=== PATIENT | female | born 1970 | race Two or more races ===

== ENCOUNTER 2024-10-01 10:11 | Outpatient (CLI) | payer OTHER | END 2024-10-01 10:17 | disposition home or self-care (01) | LOC: TOM 10:11 | PROVIDERS: ATTEND Surgery | DX: K57.20 Diverticulitis of large intestine with perforation and abscess without bleeding (principal); Z93.3 Colostomy status ==

== ENCOUNTER 2024-11-25 11:15 | Inpatient (IN) | payer OTHER ==
[~2024-11-25] VITALS: Ht 154.9 cm; Wt 82.6 kg
[2024-11-26] MEDS ORDERED: LOSARTAN POTASS50 MG PO (14:46)
[2024-11-26] MEDS ORDERED: HYDRODIURIL12.5 MG PO (14:46)
[2024-11-26] MEDS ORDERED: ZOLOFT100 MG PO (14:47)
[2024-12-06] MEDS ORDERED: METRONIDAZOLE/SODIUM CHLORIDE 500 MG/100 ML PIGGYBACK IV ONE (10:34)
[2024-12-06] MEDS ORDERED: CEFTRIAXONE SODIUM 2,000 MG VIAL ONE (10:34)
[2024-12-06] MEDS ORDERED: BUPIVACAINE HCL/MPF 0.5% 30ML VIAL ONE (12:52)
[2024-12-06] MEDS ORDERED: POVIDONE-IODINE 118 ML BOTT TOP ONE (14:32)
[2024-12-06] MEDS ORDERED: SUGAMMADEX SODIUM 200 MG/2 ML VIAL IV ONE (15:19)
[2024-12-06] MEDS ORDERED: DEXTROSE 50 % IN WATER 0.5 G/ML VIAL IV PRN (15:45)
[2024-12-06] MEDS ORDERED: 0.9 % SODIUM CHLORIDE 1,000 ML IV SCH (15:45)
[2024-12-06] MEDS ORDERED: OxyCODONE HCL 5 MG TABLET (ROXICODONE) PO PRN (15:45)
[2024-12-06] MEDS ORDERED: ONDANSETRON HCL 2 MG/ML VIAL IV PRN (15:45)
[2024-12-06] MEDS ORDERED: MORPHINE SULFATE 4 MG/ML CARTRIDGE IV PRN (15:45)
[2024-12-06] MEDS ORDERED: HYOSCYAMINE SULFATE 0.125 MG TAB.SUBL SL SCH (17:00)
[2024-12-06] MEDS ORDERED: GABAPENTIN 300 MG CAPSULE PO SCH (17:00)
[2024-12-06] MEDS ORDERED: METRONIDAZOLE/SODIUM CHLORIDE 500 MG/100 ML PIGGYBACK IV SCH (17:00)
[2024-12-06] MEDS ORDERED: ENALAPRILAT DIHYDRATE 1.25 MG/ML VIAL IV PRN (19:15)
[2024-12-06] MEDS ORDERED: ACETAMINOPHEN 500 MG GEL..CAP PO SCH (20:00)
[2024-12-06] MEDS ORDERED: ACETAMINOPHEN 500 MG GEL..CAP PO ONE (20:01)
[2024-12-06] MEDS ORDERED: FAMOTIDINE/PF 20 MG/2 ML VIAL ONE (20:01)
[2024-12-06] MEDS ORDERED: CELECOXIB 200 MG CAPSULE PO ONE (20:01)
[2024-12-06 20:26] LABS: BASO % 0.1 % (0.1-1.2); EOS # 0.01 (0.04-0.54); EOS % 0.1 % (0.7-7.0); LYMPH # 0.39 (1.18-3.74); LYMPH % 2.9 % (19.3-53.1); MEAN PLATELET VOLUME 10.20 fl (9.4-12.4); MONO # 0.54 (0.24-0.82); MONO % 4.1 % (4.7-12.5); NEUT # 12.31 (1.56-6.13); NEUT % 92.5 % (34.0-71.1); RED CELL DISTRIBUTION WIDTH 13.1 % (11.6-14.4)
[2024-12-06 20:51] LABS: BUN CREA RATIO 13.0 (7.0-25.0); CREATININE SERUM 0.62 mg/dL (0.55-1.02); GFR 100.31; GLUCOSE FASTING 173.0 mg/dL (65-100); OSMOLALITY SERUM 287.0 MOSM/KG (275-295)
[2024-12-06] MEDS ORDERED: CELECOXIB 200 MG CAPSULE PO SCH (21:00)
[2024-12-06] MEDS ORDERED: FAMOTIDINE/PF 20 MG/2 ML VIAL IV PUSH SCH (21:00)
[2024-12-06 21:24] VITALS: BP 145/80; O2SAT 97
[2024-12-07 00:37] VITALS: BP 140/69; O2SAT 97
[2024-12-07] MEDS ORDERED: HYDROCHLOROTHIAZIDE 12.5 MG CAPSULE PO SCH (09:00)
[2024-12-07] MEDS ORDERED: LOSARTAN POTASSIUM 100 MG TABLET PO SCH (09:00)
[2024-12-07] MEDS ORDERED: SERTRALINE HCL 100 MG TABLET PO SCH (09:00)
[2024-12-07 10:37] LABS: BUN CREA RATIO 18.0 (7.0-25.0); CREATININE SERUM 0.38 mg/dL (0.55-1.02); GFR 176.48; GLUCOSE FASTING 122.0 mg/dL (65-100); OSMOLALITY SERUM 286.0 MOSM/KG (275-295)
[2024-12-07] MEDS ORDERED: AMINOCAPROIC ACID 250 MG/ML VIAL IV STA (13:07)
[2024-12-07] MEDS ORDERED: AMINOCAPROIC ACID 250 MG/ML VIAL IV SCH (13:15)
[2024-12-07 14:10] LABS: BASO % 0.2 % (0.1-1.2); EOS # 0.03 (0.04-0.54); EOS % 0.3 % (0.7-7.0); LYMPH # 1.15 (1.18-3.74); LYMPH % 10.2 % (19.3-53.1); MEAN PLATELET VOLUME 10.40 fl (9.4-12.4); MONO # 0.57 (0.24-0.82); MONO % 5.1 % (4.7-12.5); NEUT # 9.44 (1.56-6.13); NEUT % 83.7 % (34.0-71.1); RED CELL DISTRIBUTION WIDTH 13.4 % (11.6-14.4)
[2024-12-07 15:31] LABS: ALT/SGPT 112.0 U/L (12-78); AST/SGOT 67.0 U/L (15-37); BILIRUBIN TOTAL 0.75 mg/dL (0.3-1.2); BUN CREA RATIO 15.0 (7.0-25.0); CREATININE SERUM 0.48 mg/dL (0.55-1.02); GFR 134.77; GLOBULINA 2.7 G/DL (2.4-3.5); GLUCOSE FASTING 115.0 mg/dL (65-100); OSMOLALITY SERUM 288.0 MOSM/KG (275-295)
[2024-12-07 15:33] LABS: INR 1.1
[2024-12-07] MEDS ORDERED: ENOXAPARIN SODIUM 40 MG/0.4 ML SYRINGE SUBCUTANEO SCH (17:00)
[2024-12-07 17:19] VITALS: BP 90/54; O2SAT 98
[2024-12-08 00:54] VITALS: BP 107/65; O2SAT 100
[2024-12-08 07:51] LABS: BASO % 0.3 % (0.1-1.2); EOS # 0.35 (0.04-0.54); EOS % 3.8 % (0.7-7.0); LYMPH # 1.00 (1.18-3.74); LYMPH % 10.9 % (19.3-53.1); MEAN PLATELET VOLUME 10.30 fl (9.4-12.4); MONO # 0.45 (0.24-0.82); MONO % 4.9 % (4.7-12.5); NEUT # 7.33 (1.56-6.13); NEUT % 79.7 % (34.0-71.1); RED CELL DISTRIBUTION WIDTH 13.6 % (11.6-14.4)
[2024-12-08 08:00] VITALS: BP 113/66; O2SAT 99
[2024-12-08 08:39] LABS: BUN CREA RATIO 15.0 (7.0-25.0); GFR 273.45; GLUCOSE FASTING 88.0 mg/dL (65-100); OSMOLALITY SERUM 291.0 MOSM/KG (275-295)
[2024-12-08 08:47] LABS: CREATININE SERUM 0.26 mg/dL (0.55-1.02)
[2024-12-08] MEDS ORDERED: ENOXAPARIN SODIUM 40 MG/0.4 ML SYRINGE SUBCUTANEO SCH (09:00)
[2024-12-08] MEDS ORDERED: Cyanocobalamin/Mecobalamin 1 TAB.SL SL SCH (11:51)
[2024-12-08] MEDS ORDERED: POTASSIUM PHOS,M-BASIC-D-BASIC 3 MM/ML VIAL IV NR (12:00)
[2024-12-08] MEDS ORDERED: MAGNESIUM SULFATE IN WATER 50 ML IV ONE (12:00)
[2024-12-08] MEDS ORDERED: SOD FERRIC GLUC COMPLX/SUCROSE 62.5 MG in 0.9 % SODIUM CHLORIDE 50 ML IV SCH (12:00)
[2024-12-08 16:00] VITALS: BP 123/78; O2SAT 98
[2024-12-09 01:41] VITALS: BP 112/76; O2SAT 98
[2024-12-09 07:45] LABS: BASO % 0.3 % (0.1-1.2); EOS # 0.52 (0.04-0.54); EOS % 7.6 % (0.7-7.0); LYMPH # 0.96 (1.18-3.74); LYMPH % 14.1 % (19.3-53.1); MEAN PLATELET VOLUME 10.20 fl (9.4-12.4); MONO # 0.35 (0.24-0.82); MONO % 5.1 % (4.7-12.5); NEUT # 4.96 (1.56-6.13); NEUT % 72.6 % (34.0-71.1); RED CELL DISTRIBUTION WIDTH 13.6 % (11.6-14.4)
[2024-12-09 08:30] LABS: ALT/SGPT 44.0 U/L (12-78); AST/SGOT 15.0 U/L (15-37); BILIRUBIN TOTAL 0.43 mg/dL (0.3-1.2); BUN CREA RATIO 15.0 (7.0-25.0); GFR 261.79; GLOBULINA 2.6 G/DL (2.4-3.5); GLUCOSE FASTING 88.0 mg/dL (65-100); OSMOLALITY SERUM 291.0 MOSM/KG (275-295)
[2024-12-09 08:32] LABS: CREATININE SERUM 0.27 mg/dL (0.55-1.02)
[2024-12-09 08:36] VITALS: BP 125/81; O2SAT 97
[2024-12-09] MEDS ORDERED: INTEGRA F CAPS1 EACH PO (10:33)
[2024-12-09] MEDS ORDERED: TRAM1TAB98 PO (10:33)
[2024-12-09] MEDS ORDERED: HYOSCYAMINE0.125 M1 SL (10:33)
[2024-12-09] MEDS ORDERED: PEPCID AC20 MG PO (10:33)
[2024-12-09] MEDS ORDERED: ABANEU-SL TABL1 EACH SL (10:34)
[2024-12-09] MEDS ORDERED: NAPH,MB-DB/K PH,MBDB 1 PKT PACKET PO STA (11:08)
== END 2024-12-09 16:03 | disposition home or self-care (01) | DRG 331 ==
LOC: O/R 12-06 10:00 → SURG 12-06 11:15 → SURH 12-06 18:14
PROVIDERS: ADMIT Surgery; ATTEND Surgery
PROC: 0DBP4ZZ Excision of Rectum, Percutaneous Endoscopic Approach (ICD-10-PCS; 2024-12-06)
PROC: 0DBE4ZZ Excision of Large Intestine, Percutaneous Endoscopic Approach (ICD-10-PCS; 2024-12-06)
PROC: 0DTN4ZZ Resection of Sigmoid Colon, Percutaneous Endoscopic Approach (ICD-10-PCS; principal; 2024-12-06 15:45)
DX: K57.32 Diverticulitis of large intestine without perforation or abscess without bleeding (principal); K66.0 Peritoneal adhesions (postprocedural) (postinfection); Z43.3 Encounter for attention to colostomy; D64.89 Other specified anemias; E83.42 Hypomagnesemia; E83.39 Other disorders of phosphorus metabolism